=== PATIENT | male | born 1950 | race African-American/Black ===

== ENCOUNTER 2017-09-17 11:27 | Day surgery (SDC) | payer OTHER ==
[2017-09-15 12:04] VITALS: BMI 34.5
[2017-09-17] MEDS ORDERED: PROPOFOL 20 ML ONE ×3 (17:26→18:47)
[2017-09-17] MEDS ORDERED: MIDAZOLAM HCL 2 MG/2 ML SINGLE DOSE VIAL ONE ×2 (17:27)
[2017-09-17] MEDS ORDERED: ZOLPIDEM TARTRATE 5 MG TABLET PO PRN (17:27)
[2017-09-17] MEDS ORDERED: VANCOMYCIN 1,000 MG VIAL (RESTRICTED TO ID ONLY) ONE (17:47)
[2017-09-17] MEDS ORDERED: GENTAMICIN SO4 80 MG/2 ML VIAL ONE (17:47)
[2017-09-17] MEDS ORDERED: ceFAZolin SODIUM 1 GM VIAL ONE (17:50)
[2017-09-17] MEDS ORDERED: ceFAZolin SODIUM 1 GM VIAL IVPB ONE (17:55)
[2017-09-17] MEDS ORDERED: GENTAMICIN SO4 80 MG/2 ML VIAL IVPB ONE (17:55)
[2017-09-17] MEDS ORDERED: SUCCINYLCHOLINE CHLORIDE 200 MG/10 ML VIAL ONE (17:58)
[2017-09-17] MEDS ORDERED: ROCURONIUM BROMIDE 50 MG/5 ML VIAL ONE (18:02)
[2017-09-17] MEDS ORDERED: GLYCOPYRROLATE 0.2 MG/1 ML VIAL ONE (19:09)
[2017-09-17] MEDS ORDERED: NEOSTIGMINE METHYLSULFATE 0.5 MG/ML - 10 ML MDV ONE (19:09)
[2017-09-17] MEDS ORDERED: ALBUTEROL SO4 18 GM HFA INHALER IH ONE (19:41)
[2017-09-17] MEDS: LACTATED RINGERS SOLUTION 1,000 ML IV SCH (19:44)
--- NOTE | 2017-09-17 19:49 | OP ---
Operative Note - Note: Operative Date: 09/17/17 Pre-Operative Diagnosis: organic penile impotence Operation: insertion of coloplast titan ipp Post-Operative Diagnosis: Same as Pre-op Surgeon: Amro Frausto Anesthesia: General Specimens Removed: none Estimated Blood Loss (mls): 50 Drains & Tubes with Location: IPP 23CM 13MMX2 COLOPLAST Operative Report Dictated: Yes
[2017-09-17] MEDS ORDERED: ONDANSETRON 4 MG/2 ML VIAL ONE (20:38)
[2017-09-17] MEDS: ONDANSETRON 4 MG/2 ML VIAL IVPUSH PRN (20:40)
[2017-09-17] MEDS ORDERED: cefTRIAXone 1 GM/50 ML BAG (PRE-DOCKED) IVPB SCH (22:00)
[2017-09-17] MEDS: CEFTRIAXONE 1 G/50 ML PREMIX 50 ML IVPB SCH (22:27)
[2017-09-17] MEDS: ACETAMINOPHEN 325 MG TABLET (FP) PO PRN (22:27)
[2017-09-17] MEDS: oxyCODONE HCL 5 MG TABLET PO PRN (22:28)
[2017-09-18] MEDS: oxyCODONE HCL 5 MG TABLET PO PRN ×4 (01:29→20:03)
[2017-09-18] MEDS: ACETAMINOPHEN 325 MG TABLET (FP) PO PRN ×4 (01:33→20:04)
[2017-09-18] MEDS: HYDROmorphone HCL CARPU-JECT 2 MG/1 ML DISP.SYRIN IM PRN ×2 (02:08→06:00)
[2017-09-18] MEDS: LACTATED RINGERS SOLUTION 1,000 ML IV SCH (06:00)
[2017-09-18] MEDS: CEFTRIAXONE 1 G/50 ML PREMIX 50 ML IVPB SCH (09:34)
[2017-09-18] MEDS: ONDANSETRON 4 MG/2 ML VIAL IVPUSH PRN (09:37)
--- NOTE | 2017-09-18 11:55 | PN ---
Progress Note (short form) - Note Progress Note: s/p inflatabl ipp coby d/c wound c/ d i voiiding well vss pt to be d/c on keflex and percocet f/uin office mon 2 pm
--- NOTE | 2017-09-18 12:38 | PN ---
Progress Note (short form) - Note Progress Note: pt. developped severe pain and n/v after standing vss chest clear heart rrr abd. soft n/t elke d/c and dressing changed will d/c in am.
--- NOTE | 2017-09-18 15:20 | PN ---
Progress Note (short form) - Note Progress Note: Post op day #1.S/P Penile implant placement under GA uneventful.Patient stable.No any anesthesia related problem.Patient DC from the anesthesia care.
[2017-09-19] MEDS: oxyCODONE HCL 5 MG TABLET PO PRN ×2 (00:48→08:53)
[2017-09-19] MEDS: ACETAMINOPHEN 325 MG TABLET (FP) PO PRN ×2 (00:48→08:54)
[2017-09-19] MEDS: LACTATED RINGERS SOLUTION 1,000 ML IV SCH (08:55)
[2017-09-19 10:23] VITALS: BP 158/85; PULSE 115; TEMP 98.4
--- NOTE | 2017-09-19 10:41 | OP ---
DATE OF OPERATION: 09/17/2017 PREOPERATIVE DIAGNOSES: 1. Organic penile impotence. 2. Diabetes. 3. Dyslipidemia. 4. Hypertension. 5. Peripheral vascular disease. 6. Vasculogenic impotence. OPERATIVE PROCEDURE: Insertion of the Coloplast 3-piece Titan zero-touch penile implant. Measurements are 20 cm with a 1-cm rear tip community aide at both ends. ANESTHESIA: General. DESCRIPTION OF PROCEDURE: Under the above-stated anesthesia, patient is prepped and draped in the usual sterile manner. He is placed in the supine position. After careful prepping and washing the area, an infrapubic incision was made above the base of the penis approximately 3 cm in length in a semicircular fashion. This was carried down through skin and subcutaneous tissue. A 16-Azeri Davila was then inserted and connected to a drainage bag. Using both blunt and sharp dissection, the right and left corpora were isolated. The neurovascular bundle on the dorsum of the penis was noticed and kept out of the surgical field. A right and left corporotomy was performed using a hooked scalpel approximately 2 cm in length. Stay sutures were placed on either side of the corporotomy incisions using 2-0 Vicryl suture ligatures. A Concepcion was used to dilate the distal and proximal ends of the corpora. The dimensions were 14 cm distally and 7 cm proximally. Therefore, a Titan Coloplast 20-cm prosthesis with a 1-cm rear tip community aide was placed into the right corpora as well as the left corpora. Using blunt dissection and a nasal speculum, the reservoir was placed between the internal oblique muscle and the transversalis abdominis in the mid-portion of the left hemiabdomen. The inflate-deflate valve was also placed in the mid-portion of the most-dependent part of the scrotum using the nasal cannula as a blunt dissecting instrument. Afterwards, all tubes were connected as per the usual manner. The inflation was performed, and this revealed a satisfactory erection. Both ends of the prosthesis were in the mid-glans. No crossover was noted. The urine in the Davila was clear. Therefore, the Davila catheter was removed. A Cheo-Moncada was placed in the most-dependent portion of the scrotum and brought out a separate stab wound incision. The infrapubic incision was closed with 2 layers of 3-0 Vicryl suture ligature. The tubing was also buried using 3-0 Vicryl suture ligature. The skin was closed with chung. The Davila catheter was removed. Scrotal support and dressing were applied to the patient. The patient tolerated the procedure well. He returned to the recovery room in good condition. Marcy [id number]
--- NOTE | 2017-09-19 10:41 | HP ---
DATE OF ADMISSION: 09/17/2017 HISTORY OF PRESENT ILLNESS: The patient is a 67-year-old male with history of penile impotence, multiple attempts at treatment with p.o. medications including Viagra, Cialis, and Levitra which were unhelpful. Intracavernosal injections were also unhelpful. The patient does have history of diabetes, high blood pressure, and dyslipidemia. He denies any chest pain. He is taking medication for his high blood pressure. He also has history of right quadriceps muscle rupture and umbilical hernia repair in the past as well as cataract surgery. MEDICATIONS: He is on Ambien proton pump inhibitor, atorvastatin, benzonatate, EpiPen, Flonase , hydrochlorothiazide, metformin, Norvasc, ProAir, Zoloft, Zyrtec. 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 SOCIAL HISTORY: The patient denies ethanol or tobacco use. ALLERGIES: He does have allergies to LATEX, ANGIOTENSIN RECEPTOR BLOCKERS, as well as ANGIOTENSIN INHIBITORS. He develops angioedema and swelling of the tongue. PHYSICAL EXAMINATION: General: Revealed a well-developed adult male. Abdomen: Soft. Genitalia atraumatic. Testes are soft, nontender. No hernia, no hydroceles. Meatus is adequate. His prostate is 2+, benign, and nontender. He has undergone a left inguinal hernia repair. Extremities: He has undergone a total left knee replacement. LABORATORY DATA: His BUN is 20 and creatinine is 1.3. His PSA is 0.6. ASSESSMENT: A penile implant is what the patient wants and has been recommended. Extensive discussion regarding the implant was carried out including the possibility of a shortened penis, chronic pain, perforation, infection, hemorrhage. Patient understands all possible side effects and complications. He is willing to undergo the procedure. Marcy [id number]
== END 2017-09-19 10:28 | disposition home or self-care (01) ==
LOC: JASU-SURG 11:27 → J8W 22:00 → JASU-SURG 09-19 10:28
PROVIDERS: ATTEND Urology
PROC: 0VUS0JZ Supplement Penis with Synthetic Substitute, Open Approach (ICD-10-PCS; principal; 2017-09-17 14:00)
DX: N52.8 Other male erectile dysfunction (principal); E11.9 Type 2 diabetes mellitus without complications; E78.5 Hyperlipidemia, unspecified; I10 Essential (primary) hypertension; I73.9 Peripheral vascular disease, unspecified
CPT/HCPCS: 94010; 94760